=== PATIENT | female | born 1990 | race Caucasian/White ===

== ENCOUNTER 2023-02-07 22:33 | Inpatient (IN) | payer OTHER ==
[~2023-02-07] VITALS: Ht 172.7 cm; Wt 90.7 kg
[2023-02-07] MEDS ORDERED: ESCI20 PO (23:07)
[2023-02-07] MEDS ORDERED: QUETIAPINE FUMA50 M2 PO (23:08)
[2023-02-07] MEDS ORDERED: Inderal40 MG PO (23:08)
[2023-02-08] VITALS (17 sets, daily range): BP systolic 95–127; BP diastolic 49–84
[2023-02-08 00:01] LABS: Source, Urine Clean Catch
[2023-02-08 00:25] LABS: Ethanol (Alcohol), Blood, Med <3 mg/dL; Salicylate <1.7 mg/dL (2.8-20.0)
[2023-02-08 00:42] LABS: Appearance, Urine Hazy (Clear); Blood, Urine 3+ (Neg); Color, Urine Amber (P-Yellow); Glucose Qualitative, Urine Neg (Neg); Ketones, Urine 4+ (Neg); Leukocyte Esterase, Urine 3+ (Neg); Nitrite, Urine Pos (Neg); Protein, Urine 2+ (Neg); Specific Gravity, Urine 1.015 (1.003-1.022); Urobilinogen, Urine 4+ (Normal)
[2023-02-08 00:43] LABS: BASOPHILS ABSOLUTE AUTO 0.03 K/mm3 (0.00-0.23); BASOPHILS PERCENT AUTO 1 % (0-2); EOSINOPHILS ABSOLUTE AUTO 0.07 K/mm3 (0.00-0.68); EOSINOPHILS PERCENT AUTO 1 % (0-6); Hematocrit 34.2 % (33.0-51.0); Hemoglobin 11.5 g/dL (11.5-16.0); IMMATURE GRAN ABSOLUTE AUTO 0.03 K/mm3 (0.00-0.10); IMMATURE GRAN PERCENT AUTO 1 % (0-1); LYMPHOCYTES PERCENT AUTO 23 % (21-46); MONOCYTES ABSOLUTE AUTO 0.47 K/mm3 (0.16-1.47); MONOCYTES PERCENT AUTO 10 % (4-13); Mean Corpuscular HGB 31.9 pg (26.0-34.0); Mean Corpuscular HGB Conc 33.6 g/dL (31.5-36.5); Mean Corpuscular Volume 95 fL (80-100); NEUTROPHILS ABSOLUTE AUTO 3.13 K/mm3 (1.96-9.15); NEUTROPHILS PERCENT AUTO 65 % (41-73); Platelet Count 90 K/mm3 (150-400); RDW Coefficient Variation 14.9 % (11.7-14.2); RDW Standard Deviation 51.5 fL (35.1-46.3); Red Blood Cell Count 3.61 M/mm3 (3.80-5.20); White Blood Cell Count 4.83 K/mm3 (4.00-11.30)
[2023-02-08 01:02] LABS: U Amphetamine Screen Not Detected; U Barbituate Screen Not Detected; U Benzodiazapine Screen DETECTED; U Buprenorphine Screen Not Detected; U Cannabinoids Screen Not Detected; U Cocaine Screen Not Detected; U Methadone Screen Not Detected; U Methamphetamine Screen Not Detected; U Opiates Screen Not Detected; U Oxycodone Screen Not Detected; U Phencyclidine Screen Not Detected
[2023-02-08 01:03] LABS: Bilirubin, Urine 2+ (Neg)
[2023-02-08 01:04] LABS: Amorphous Light (0-Heavy); Bacteria Many /hpf; Red Blood Cells, Urine 0-2 /hpf (0-2); Squamous Epithelial Cells Mod /hpf (Few)
[2023-02-08 01:06] LABS: Alanine Aminotransfer (ALT/SGP 252 U/L (12-78); Albumin, Blood 4.1 g/dL (3.4-5.0); Albumin/Globulin Ratio 1.3 (0.8-1.8); Alk Phos 132 U/L (50-136); Anion Gap 11 mmol/L (6-16); Aspartate Aminotrans (AST/SGOT 442 U/L (12-37); Bilirubin, Total 1.9 mg/dL (0.1-1.0); Blood Urea Nitrogen 7 mg/dL (8-24); Bun/Creatinine Ratio 9.6 (12.0-20.0); CO2, Blood 25 mmol/L (21-32); Calcium, Blood 8.7 mg/dL (8.5-10.1); Chloride, Blood 102 mmol/L (98-108); Creatinine, Blood 0.73 mg/dL (0.40-1.00); Globulin, Blood 3.1 g/dL (2.2-4.0); Glomerular Filtration Rate 110 (60-); Glucose, Blood 77 mg/dL (70-99); Sodium, Blood 138 mmol/L (136-145); Total Protein, Blood 7.2 g/dL (6.4-8.2)
[2023-02-08 01:08] LABS: Acetaminophen, Random <2.0 ug/mL (10.0-30.0)
[2023-02-08 05:13] LABS: BASOPHILS ABSOLUTE AUTO 0.02 K/mm3 (0.00-0.23); BASOPHILS PERCENT AUTO 1 % (0-2); EOSINOPHILS ABSOLUTE AUTO 0.06 K/mm3 (0.00-0.68); EOSINOPHILS PERCENT AUTO 2 % (0-6); Hematocrit 29.7 % (33.0-51.0); Hemoglobin 10.2 g/dL (11.5-16.0); IMMATURE GRAN ABSOLUTE AUTO 0.01 K/mm3 (0.00-0.10); IMMATURE GRAN PERCENT AUTO 0 % (0-1); LYMPHOCYTES ABSOLUTE AUTO 1.21 K/mm3 (0.84-5.20); LYMPHOCYTES PERCENT AUTO 32 % (21-46); MONOCYTES ABSOLUTE AUTO 0.43 K/mm3 (0.16-1.47); MONOCYTES PERCENT AUTO 11 % (4-13); Mean Corpuscular HGB 32.6 pg (26.0-34.0); Mean Corpuscular HGB Conc 34.3 g/dL (31.5-36.5); Mean Corpuscular Volume 95 fL (80-100); Mean Platelet Volume 10.8 fL (9.1-12.4); NEUTROPHILS ABSOLUTE AUTO 2.11 K/mm3 (1.96-9.15); NEUTROPHILS PERCENT AUTO 55 % (41-73); Platelet Count 80 K/mm3 (150-400); RDW Coefficient Variation 15.2 % (11.7-14.2); Red Blood Cell Count 3.13 M/mm3 (3.80-5.20); White Blood Cell Count 3.84 K/mm3 (4.00-11.30)
[2023-02-08 05:34] LABS: Albumin, Blood 3.2 g/dL (3.4-5.0); Albumin/Globulin Ratio 1.2 (0.8-1.8); Bilirubin, Total 1.4 mg/dL (0.1-1.0); Calcium, Blood 7.1 mg/dL (8.5-10.1); Creatinine, Blood 0.6 mg/dL (0.40-1.00); Globulin, Blood 2.7 g/dL (2.2-4.0); Potassium, Blood 3.7 mmol/L (3.5-5.5); Total Protein, Blood 5.9 g/dL (6.4-8.2)
--- NOTE | 2023-02-08 06:35 | NUR ---
ASSUMED CARE PT IS ALERT AND ORIENTED X4. PT DENIES SUICIDAL IDEATION, STATES "NOT RIGHT NOW". DENIES HALLUCINATIONS AT THIS TIME. ONLY COMPLAINT IS WANTING TO SLEEP D/T IT BEING EARLY. PT DOES HAVE TREMORS; ALSO TWITCHES FREQUENTLY WHILE AWAKE. PT STATES THAT HALLUCINATING IS COMMON FOR HER AND THAT IT "COMES IN SPELLS", DESCRIBES HER HALLUCINATIONS "SHE CAN SEE THE FUTURE"; CLARIFIES THAT SHE VISUALLY SEE'S IT. CONFIRMS THAT SHE QUIT DRINKING ON SUNDAY AND DRINKS 5-6 DRINKS 4-5 DAYS A WEEK. PERRLA W/ PUPILS DILATED @ 6. VSS; RA. PT IS RESTING QUIETLY AT THIS TIME. PLEASANT AND COOPERATIVE W/ CARE.
[2023-02-08 08:43] LABS: Magnesium, Blood 1.3 mg/dL (1.6-2.4); Phosphorus, Blood 4.5 mg/dL (2.5-4.9)
--- NOTE | 2023-02-08 18:37 | NUR ---
Shift summary. Pt rested in bed throughout much of shift. PRN ativan given with good effect for withdrawal symptoms, see CIWA assessments/EMAR. Sitter present entire shift. No acute events, VS stable. See chart for further details.
--- NOTE | 2023-02-08 20:59 | NUR ---
ASSUMED CARE PT IS A&O X4; CIWA <7 AT TIME OF THIS NOTE. EDUCATED ON PURPOSE OF CIWA AND DANGERS OF ALCOHOL WITHDRAWAL. PT DENIES HALLUCINATIONS OR SUICIDAL/HOMICIDAL IDEATION AT THIS TIME. PT TOOK SHOWER AND AMBULATED WELL W/ 1:1 SITTER MONITORING WHILE PT TOOK SHOWER. VSS. PERRLA. PT APPEARS TO STILL HAVE SOME PARANOIA AND CONTINUES TO SPEAK ERRATICALLY, BUT IS PLEASANT AND COOPERATIVE. PT COMPLAINS OF MILD ANXIETY D/T "ALL THE STUFF I HAVE TO DO WHEN I GET OUT OF HERE".
--- NOTE | 2023-02-08 22:29 | NUR ---
TRANSFER PT TRANSFERRED TO 353 @ 2210 W/ MEDS AND BELONGINGS. ACCOMPANIED BY THIS RN AND 1:1 SITTER. REPORT GIVEN TO FRENCH LEARY.
--- NOTE | 2023-02-09 01:04 | NUR ---
SHIFT DAVIDY, PT TRANSFRED FORM ICU TO 3RD FLOOR MEDICAL. PT CALM AND COOPERATIVE BUT BECOMMING MORE ANXIOUS, PTS CIWA EVALUATED AND PT GIVEN SOME ATIVAN. PT HAS SITTER AT BEDSIDE AND PT TRYING TO REST. CALL LIGHT IN REACH.
[2023-02-09 02:32] VITALS: BP 125/90
--- NOTE | 2023-02-09 05:01 | NUR ---
SHIFT MAKAYLA, PT MEDICATED X 2 WITH ATIVAN FOR ANXIETY FROM ETOH WITHDRAWL. SITTER AT BEDSIDE, DOOR CLOSED DUE TO OTHER PTS YELLING AND ALARMS GOING OFF FREQUENTLY.
[2023-02-09 05:55] LABS: BASOPHILS ABSOLUTE AUTO 0.03 K/mm3 (0.00-0.23); BASOPHILS PERCENT AUTO 1 % (0-2); EOSINOPHILS ABSOLUTE AUTO 0.07 K/mm3 (0.00-0.68); EOSINOPHILS PERCENT AUTO 2 % (0-6); Hematocrit 32.2 % (33.0-51.0); Hemoglobin 10.9 g/dL (11.5-16.0); IMMATURE GRAN ABSOLUTE AUTO 0.02 K/mm3 (0.00-0.10); IMMATURE GRAN PERCENT AUTO 1 % (0-1); LYMPHOCYTES ABSOLUTE AUTO 1.15 K/mm3 (0.84-5.20); LYMPHOCYTES PERCENT AUTO 39 % (21-46); MONOCYTES ABSOLUTE AUTO 0.41 K/mm3 (0.16-1.47); MONOCYTES PERCENT AUTO 14 % (4-13); Mean Corpuscular HGB 32.7 pg (26.0-34.0); Mean Corpuscular HGB Conc 33.9 g/dL (31.5-36.5); Mean Corpuscular Volume 97 fL (80-100); Mean Platelet Volume 11.1 fL (9.1-12.4); NEUTROPHILS ABSOLUTE AUTO 1.26 K/mm3 (1.96-9.15); NEUTROPHILS PERCENT AUTO 43 % (41-73); Platelet Count 82 K/mm3 (150-400); RDW Coefficient Variation 15.6 % (11.7-14.2); RDW Standard Deviation 54.4 fL (35.1-46.3); Red Blood Cell Count 3.33 M/mm3 (3.80-5.20); White Blood Cell Count 2.94 K/mm3 (4.00-11.30)
[2023-02-09 06:15] LABS: Albumin, Blood 3.2 g/dL (3.4-5.0); Albumin/Globulin Ratio 1.1 (0.8-1.8); Bilirubin, Total 1.2 mg/dL (0.1-1.0); Bun/Creatinine Ratio 10.2 (12.0-20.0); Calcium, Blood 8.9 mg/dL (8.5-10.1); Creatinine, Blood 0.59 mg/dL (0.40-1.00); Magnesium, Blood 2.1 mg/dL (1.6-2.4); Potassium, Blood 3.1 mmol/L (3.5-5.5); Total Protein, Blood 6.2 g/dL (6.4-8.2)
--- NOTE | 2023-02-09 07:29 | NUR ---
NOTE: PATIENT POTASSIUM AM LAB RESULT THIS AM IS 3.1. NOTIFIED DR. VILLALPANDO REGARDING THIS CONCERNED. RECEIVED ORDER TO GIVE K CHLORIDE 40 MEQ PO NOW.
[2023-02-09 08:25] VITALS: BP 136/94
--- NOTE | 2023-02-09 08:38 | NUR ---
PATIENT DENIES SI OR HARMING HERSELF AT THIS TIME. DENIES VISUAL/AUDITORY HALLUCINATIONS. PATIENT REPORTS "LITTLE SLEPT LAST NIGHT D/T NOISES, YELLING OUT ACROSS HER ROOM AND BED ALARM OFF ALL NIGHT. PATIENT REQUESTING TO "HAVE SOME SLEEP TODAY." 1:1 SITTER IN ROOM.
[2023-02-09 17:06] VITALS: BP 129/92
--- NOTE | 2023-02-09 17:24 | NUR ---
SHIFT SUMMARY: PATIENT A/OX4, ANSWER TO QUESTIONS APPROPRIATELY AND ABLE TO MAKE NEEDS KNOWN. PATIENT DENIES SI, VISUAL/AUDITORY HALLUCINATIONS. PATIENT REPORTS ANXIOUS THIS AM, MEDICATED c PRN ANXIETY MEDS c GREAT RESULT. CIWA SCORE OF 5 THIS SHIFT. PATIENT STILL ON 2 MD HOLD, 1:1 SITTER. PATIENT DENIES CP/PRESSURE, SOB, N/V AND DIZZINESS. PATIENT RECEIVED SCHEDULED MEDS PER EMAR. VITAL SIGNS REVIEWED. PIV TO LAC SALINE LOCKED. CALL LIGHT IN REACH.
[2023-02-09 21:47] VITALS: BP 127/94
--- NOTE | 2023-02-10 02:34 | NUR ---
SHIFT SUMMERY. PT RESING IN BED AAT THIS TIME. PT GIVEN ATIVAN ERALIER FOR TREMORS AND ANXIETY. AT THAT TIME THER WAS ALOT OF BE ALARMS GOING OFF AND A LOT OF ACTIVITY WHICH MADE PTS ANXIETY WORSE. PT MORE RELAXED ATER MED GIVEN BUT STILL ANXIOUS PT MEDICATED AGAIN. PT WANTING SOMETHING FOR SLEEP AND HOSPITALIST TUAN NUÑEZ ATIVAN. SITTER AT BEDSIDE IN ROOM. CALL LIGHT IN REACH.
--- NOTE | 2023-02-10 06:05 | NUR ---
SHIFT SUMMERY, PT SEEMS TO HAVE BEEN ABLE TO SLEEP . PT HAS DENIED ANY THOUGHT OF SUICIDE OR PLANS, PT ANXIOUS AND HAS SOME TREMORS AT TIMES, PT MEDICATED WITH ATIVAN AND LIBRIUM. PT HAS SITTER IN ROOM. PT IS COOPERATIVE AND ALERT. CALL LIGHT IN REACH. PT DENIED HEARING VOICES OR HAVING ANY HALUCINATIONS.
[2023-02-10 06:48] VITALS: BP 130/89
[2023-02-10 07:52] VITALS: BP 135/90
[2023-02-10 08:30] LABS: BASOPHILS ABSOLUTE AUTO 0.02 K/mm3 (0.00-0.23); BASOPHILS PERCENT AUTO 1 % (0-2); EOSINOPHILS ABSOLUTE AUTO 0.07 K/mm3 (0.00-0.68); EOSINOPHILS PERCENT AUTO 2 % (0-6); Hematocrit 33.7 % (33.0-51.0); Hemoglobin 11.3 g/dL (11.5-16.0); IMMATURE GRAN ABSOLUTE AUTO 0.02 K/mm3 (0.00-0.10); IMMATURE GRAN PERCENT AUTO 1 % (0-1); LYMPHOCYTES PERCENT AUTO 28 % (21-46); MONOCYTES ABSOLUTE AUTO 0.51 K/mm3 (0.16-1.47); MONOCYTES PERCENT AUTO 16 % (4-13); Mean Corpuscular HGB 32.7 pg (26.0-34.0); Mean Corpuscular HGB Conc 33.5 g/dL (31.5-36.5); Mean Corpuscular Volume 97 fL (80-100); Mean Platelet Volume 10.8 fL (9.1-12.4); NEUTROPHILS ABSOLUTE AUTO 1.75 K/mm3 (1.96-9.15); NEUTROPHILS PERCENT AUTO 54 % (41-73); Platelet Count 104 K/mm3 (150-400); RDW Coefficient Variation 15.9 % (11.7-14.2); RDW Standard Deviation 56.9 fL (35.1-46.3); Red Blood Cell Count 3.46 M/mm3 (3.80-5.20); White Blood Cell Count 3.27 K/mm3 (4.00-11.30)
[2023-02-10 08:43] LABS: Calcium, Blood 9.1 mg/dL (8.5-10.1); Creatinine, Blood 0.57 mg/dL (0.40-1.00); Potassium, Blood 3.2 mmol/L (3.5-5.5)
[2023-02-10 09:56] LABS: HEPATITIS A ANTIBODY, IGM Negative (Negative); HEPATITIS B CORE ANTIBODY, IGM Negative (Negative); HEPATITIS B SURFACE ANTIGEN Negative (Negative); HEPATITIS C AB CIA INTERP Negative (Negative); HEPATITIS C ANTIBODY CIA INDEX 0.03 IV
--- NOTE | 2023-02-10 10:56 | NUR ---
VERBAL ORDER FOR TRAZADONE 50MG QHS PRN REPEATED FOR VERIFICATION AND ENTERED INTO [employer].
[2023-02-10 14:47] VITALS: BP 132/107
--- NOTE | 2023-02-10 16:10 | NUR ---
DR ESTRELLA DISCONTINUED MD HOLD AT ~1550HRS. FAMILY AT BEDSIDE. DR VILLALPANDO PLACED DISCHARGE ORDERS. HANK DSOUZA DISCUSSED PLAN FOR OUT PATIENT WITH PATIENT. DISCHARGE IS PENDING. PT HAS HAD A SITTER ALL DAY 1:1 THROUGHTOUT THE SHIFT. SHE HAS DENIED ANY SUICIDAL IDEATIONS TO ME WHEN QUESTIONED. MS ESTRELLA HAD A VAPING INSTRUMENT ON HER PERSON. SHE HAD PREVIOUSLY BEEN EDUCATED ON NO VAPING IN THE HOSPITAL AND PER REPORT HER VAPING INSRUMENT HAD PREVIOUSLY BEEN REMOVED AND LOCKED UP. WHEN HER BAG WAS OPENED IN HER PRESENCE FROM LOCKED CUPBOARD AND PT WENT THROUGH IT IN FRONT OF RN AND MANAGER BEHAVIOR THE VAPING INSTRUMENT WAS NOT THERE AND SHE HAD A VAPING INSTRUMENT ON HER PERSON. SHE DENIED VAPING IN HER ROOM AND SITTER DENIED SEEING HER VAPE. PT WAS REEDUCATED ON FIRE RISK AND SAFETY AND VAPE INSRUMENT LOCKED UP. SITTER REMAINS AT BEDSIDE DUE TO FIRE SAFETY RISK WHILE AWAITING DISCHARGE. DR VILLALPANDO WAS NOTIFIED OF THE INCIDENCE.
[2023-02-10] MEDS ORDERED: ABILIFY MYCITE10 M2 PO (16:13)
[2023-02-10] MEDS ORDERED: DOXY100 PO (16:13)
[2023-02-10] MEDS ORDERED: HYDROCORTISONE-28 GM TOP (16:16)
[2023-02-10] MEDS ORDERED: TRAZ50 PO (16:17)
--- NOTE | 2023-02-10 16:30 | NUR ---
DISCHARGE NOTE MS EDMONDS VERBALISED UNDERSTANDING OF WRITTEN AND VERBAL DISCHARGE INSTRUCTIONS. SHE SAID SHE RECEIVED RESOURCES AND INFORMATION FOR OUT PT FOLLOW UP FROM JO ANN DSOUZA CASHIER CLERK AND DR ESTRELLA. SHE HAS NO PIV IN. BELONGINGS WERE REMOVED FROM LOCKED CUPBOARD AND GIVEN TO PT. SHE WAS DISCHARGED HOME WITH FAMILY WITH HER. SHE AMBULATED FROM MEDICAL UNIT AT 1630HRS.
== END 2023-02-10 17:10 | disposition home or self-care (01) | DRG 885 ==
LOC: ER 22:33 → EOR 22:34 → ER 22:34 → ICUE 02-08 03:47 → MEDS 02-08 03:47 → ICUE 02-08 05:50 → MEDS 02-08 22:16
PROVIDERS: Family Medicine; Internal Medicine; Student in an Organized Health Care Education/Training Program; ADMIT Student in an Organized Health Care Education/Training Program
PROC: HZ2ZZZZ Detoxification Services for Substance Abuse Treatment (ICD-10-PCS; principal; 2023-02-08)
DX: F33.3 Major depressive disorder, recurrent, severe with psychotic symptoms (principal); F10.232 Alcohol dependence with withdrawal with perceptual disturbance; D61.818 Other pancytopenia; R45.851 Suicidal ideations; F10.231 Alcohol dependence with withdrawal delirium; F41.8 Other specified anxiety disorders; G47.00 Insomnia, unspecified; L21.9 Seborrheic dermatitis, unspecified; E87.6 Hypokalemia; K70.10 Alcoholic hepatitis without ascites; E83.42 Hypomagnesemia; Y90.0 Blood alcohol level of less than 20 mg/100 ml; Z88.5 Allergy status to narcotic agent; Z88.8 Allergy status to other drugs, medicaments and biological substances
CPT/HCPCS: 36415; 80048; 80053; 80074; 81001; 81025; 83735; 84100; 85025; 87086; 93005; 93010; 96361; 96365; 96372; 96375; 96376; 99285-25; A9270; G0378; G0480; J0696; J1650; J1790; J2060; J3411; J3475; J3480; J7030; J7050

== ENCOUNTER → 2023-11-27 | Outpatient (CLI) | payer OTHER ==
[~2023-11-27] MED LIST: ABILIFY MYCITE10 M2 PO; DOXY100 PO; ESCI20 PO; HYDROCORTISONE-28 GM TOP; Inderal40 MG PO; QUETIAPINE FUMA50 M2 PO; TRAZ50 PO
[2023-12-01 12:19] LABS: APTIMA MEDIA TYPE Unisex Swab; C. TRACHOMATIS BY TMA Negative (Negative); N. GONORRHOEAE BY TMA Negative (Negative); SPECIMEN SOURCE Cervical
[2023-12-06 09:53] LABS: HPV HIGH RISK BY TMA Not Detected; HPV SOURCE Cervical
== END ==
LOC: LAB 16:50 → LAB SHORT 16:50
PROVIDERS: General Practice
DX: Z12.4 Encounter for screening for malignant neoplasm of cervix (principal)
CPT/HCPCS: 87070; 87205; 87491; 87591; 87624; G0123